=== PATIENT | female | born 1960 | race Caucasian/White ===

== ENCOUNTER 2018-07-25 10:01 | Outpatient (RCR) | payer MEDICARE, SELFPAY ==
--- NOTE | 2018-07-25 09:47 | PTDS_ITS ---
Date: July 25, 2018 Referring: Dr. 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 Reporting period: 10/24/17-07/25/18 Subjective: History of Present Illness: Irma states that she has been diligent with her home exercises. She continues to try to increase activity with the RUE. She is now able to take a few bites using her R hand for utensil management. She has also been practicing writing each day and feels that she is getting more skilled and tolerant with this. She does have less pain day to day. She has been able to resume crocheting and performing needle point, which she has been unable to do since her injury. Objective: Posture: Pt continues to demonstrate WBOS in static standing. She is slow and cautious with all movements and demonstrates occasional protective positioning of the RUE. ROM: Cervical motion grossly WNL, although with obvious apprehension. She is slow and cautious with all movements of the RUE, although ROM is normal. Neuro: Pt continues to demonstrate positive upper limb tension test for both the ulnar and median nerves on the R. Treatment: [place] [id number]: Today's treatment consisted of extensive review of pts HEP. Pt understands concepts of working towards pain threshold and will also begin utilizing her compression sleeve for some of her more advanced activities for hopefully improved tolerance. She received DTM throughout the extensor mechanism of the R forearm and cross friction of the common extensor tendon.She also received median nerve glides on the R with good tolerance and sustained stretching to the extensor group. Treatment Time: 35 min Assessment: Pt has been participating in PT intervention with infrequent visits over the past several months.She is returning today after 5 weeks of completing and independent program.Her symptoms of sciatica are very well managed and she continues a self stretching program for that.She is also having some functional improvement with use of RUE and has made significant gains in self management and self progression. She does understand the need for continued progressive re-introduction of abilities with RUE and, at this point, I do feel she is independent with completing. She is comfortable with this plan and understands that she can contact me with any questions or concerns in the future. G-Codes: Discharge status [id number] based on clinical judgement and progress towards established goals. Projected goal status had been [id number]. ST. Pt able to tolerate static standing to allow her to do dishes (met). 2. Pt able to tolerate introduction of HEP for core and pelvic stabilization and vestibulo ocular re-training (met). LT. Independent bed mobility without modification (met). 2. Pt able to turn head while driving without symptoms of dizziness ( progressing towards with occasional symptoms). 3. Pt able to sit for 30 min without symptoms of sciatica (met). 4. Improve comfort with VAS rating of less than 2/10 on average (not assessed on today's visit). Plan: D/C to HEP for continued self management of chronic symptoms. SS/fw MEDICAREDr. Carrillo, please sign below and return to PT if you agree with above POC. Tru Carrillo MD Date
== END 2018-07-27 23:59 | disposition home or self-care (01) ==
LOC: PT 10:01
PROVIDERS: PCP Family Medicine; Referring Provider Family Medicine; Visit Provider Family Medicine
DX: M54.32 Sciatica, left side (principal)
CPT/HCPCS: 97140

== ENCOUNTER 2018-11-09 10:52 | Outpatient (CLI) | payer MEDICARE, SELFPAY ==
[2018-11-09 12:58] LABS: Calcium 9.3 mg/dL (8.5-10.1)
== END 2018-11-09 11:12 ==
PROVIDERS: PCP Family Medicine; Visit Provider Family Medicine
DX: M62.838 Other muscle spasm (principal); R29.898 Other symptoms and signs involving the musculoskeletal system
CPT/HCPCS: 36415; 82310

== ENCOUNTER 2019-05-03 16:58 | Outpatient (CLI) | payer MEDICARE, SELFPAY ==
--- NOTE | 2019-05-03 16:25 | DI.RAD_ITS ---
SYMPTOM/DIAGNOSIS: BILAT KNEE PAIN, M25.569 LEFT KNEE: Three views. No priors. No acute fracture or dislocation is seen. There is mild narrowing of the medial femoral tibial joint space. Periarticular spurring is seen involving all three joint compartments. There is a moderate joint effusion. The soft tissues are otherwise unremarkable. IMPRESSION: 1. Mild osteoarthritis of the left knee. 2. Moderate joint effusion. If there is concern for internal derangement, an MRI should be considered for further evaluation. RIGHT KNEE: Three views. There is moderate narrowing of the medial femoral tibial joint space. There is periarticular spurring involving all three joint compartments. The bones are intact and normally mineralized. The soft tissues are unremarkable. IMPRESSION: Mild osteoarthritis of the right knee.
--- NOTE | 2019-05-03 16:53 | DI.VRAD_ITS ---
EXAM: XR Left Knee EXAM DATE/TIME: 05/03/2019 3:41 PM CLINICAL HISTORY: 58 years old, female; Bilateral; Patient HX: Acute on top of chronic knee pain, fell out of bed today, limited use TECHNIQUE: Imaging protocol: XR Left knee. Views: 3 views. COMPARISON: No relevant prior studies available. FINDINGS: Bones/joints: Moderate joint effusion. Internal derangement is not excluded. Consider MRI. No osteophytosis in the lateral compartment. No acute fracture or dislocation. Soft tissues: Normal. IMPRESSION: 1. Moderate joint effusion. Internal derangement is not excluded. Consider MRI. 2. No osteophytosis in the lateral compartment. Dictated and Authenticated by: Brandon Darden MD. Ordering:NATHALIA Ott MD
--- NOTE | 2019-05-03 16:54 | DI.VRAD_ITS ---
EXAM: XR Right Knee EXAM DATE/TIME: 05/03/2019 3:41 PM CLINICAL HISTORY: 58 years old, female; Bilateral; Patient HX: Acute on top of chronic knee pain, fell out of bed today, limited use TECHNIQUE: Imaging protocol: XR Right knee. Views: 3 views. COMPARISON: No relevant prior studies available. FINDINGS: Bones/joints: Narrowing of the medial compartment with mild associated osteophytosis. No acute fracture or dislocation. Soft tissues: Normal. IMPRESSION: Mild medial compartment osteoarthritis Dictated and Authenticated by: Brandon Darden MD. Ordering:NATHALIA Ott MD
== END 2019-05-03 17:18 ==
PROVIDERS: PCP Family Medicine; Visit Provider Family Medicine
DX: M25.561 Pain in right knee (principal); M25.562 Pain in left knee; M17.12 Unilateral primary osteoarthritis, left knee; M25.462 Effusion, left knee; M17.11 Unilateral primary osteoarthritis, right knee
CPT/HCPCS: 73562

== ENCOUNTER 2019-05-15 10:39 | Outpatient (CLI) | payer MEDICARE, SELFPAY ==
--- NOTE | 2019-05-15 10:37 | DI.RAD_ITS ---
SYMPTOMS/DIAGNOSIS: RT AND LT KNEE PAIN LEFT KNEE: A single AP upright image is provided and reveals medial tibial femoral joint space narrowing and mild periarticular hypertrophic spurring. Findings consistent with mild DJD, unchanged when compared with the previous images of 05/03/19. RIGHT KNEE: An AP upright examination reveals narrowing of the medial tibiofemoral joint, minimal hypertrophic spurring and no significant interval change when compared with the prior images of 05/03/19. SUMMARY: Mild to moderate DJD right knee.
== END 2019-05-15 10:59 ==
PROVIDERS: PCP Family Medicine; Referring Provider Family Medicine; Visit Provider Orthopaedic Surgery
DX: M25.561 Pain in right knee (principal); M25.562 Pain in left knee; M17.11 Unilateral primary osteoarthritis, right knee; M17.12 Unilateral primary osteoarthritis, left knee
CPT/HCPCS: 20610; 99202; 73560; J1040

== ENCOUNTER 2020-01-10 17:36 | Outpatient (REF) | payer MEDICARE, SELFPAY ==
--- NOTE | 2020-01-10 17:00 | PAPFT_PTH ---
PATIENT: Irma Gaytan LOC: [facility] U#:[id number] AGE/SX: 59/F ROOM: RE01/10/[address]: Tru Carrillo MD : [id number] BED: DIS: 01/10/2020 SPEC #: [id number] RECD: 01/13/20 12:53 STATUS: NIKIHerman REQ #: [id number] JAYLEN: 01/10/20 17:[address]: Tru Carrillo DEPT: [facility] Cytology RECD BY: Mary Godinez Tissues: 1 - CX/ENDOCX FOR PAP SMEARS Procedures: PAP THIN PREP/UVM Screening HPV DNA PROBE Comments: [id number]
== END 2020-01-10 17:56 ==
LOC: LBN 17:36
PROVIDERS: PCP Family Medicine; Visit Provider Family Medicine
DX: Z12.4 Encounter for screening for malignant neoplasm of cervix (principal); Z11.51 Encounter for screening for human papillomavirus (HPV)
CPT/HCPCS: 88142; 87624

== ENCOUNTER 2020-05-05 01:45 | Outpatient (CLI) | payer MEDICARE, SELFPAY ==
--- NOTE | 2020-05-05 13:15 | DI.MAMMO_ITS ---
EXAM: MG MAMMO SCREENING CLINICAL HISTORY: screening, Z12.39 TECHNIQUE: Bilateral full field digital CC and MLO mammographic images were obtained with 3D tomosyn thesis and utilizing computer aided detection (CAD). COMPARISON: Available for comparison. FINDINGS: Masses/Architectural Distortion: None seen. There is a stable nodule in the upper outer quadrant of t he right breast. Microcalcifications: No suspicious pleomorphic-type are seen. Skin Thickening/Nipple Retraction: None. Other: There are biopsy clips again seen in the upper outer quadrant of the right breast. IMPRESSION: 1. No significant interval change with no specific features of malignancy noted. 2. Unless there is more urgent need, screening mammography is recommended, as per [employer] guidelines. BI-RADS Category 1 - Negative Breast Density - Category B - Scattered areas of fibroglandular density A negative radiographic report should not delay biopsy if a dominant or clinically suspicious mass is present. Up to ten percent of cancers are not identified on mammography. A negative report may reinforce clinical impression. Adenosis and dense breasts may obscure an underlying neoplasm. False positive reports average 6 to 10%. Patient will receive a letter notifying them of these results.
== END 2020-05-05 02:05 ==
PROVIDERS: PCP Family Medicine; Visit Provider Family Medicine
DX: Z12.31 Encounter for screening mammogram for malignant neoplasm of breast (principal); N63.11 Unspecified lump in the right breast, upper outer quadrant
CPT/HCPCS: 77063; 77067

== ENCOUNTER 2020-07-10 10:58 | Outpatient (CLI) | payer MEDICARE, SELFPAY ==
[2020-07-10 13:03] LABS: CREATININE 0.75 mg/dL (0.55-1.02); Calculated LDL 176 mg/dL (<100); Cholesterol 267 mg/dL (<200); Glucose 102 mg/dL (74-106); HDL Cholesterol 61 mg/dL (40-60); Triglyceride 154 mg/dL (<150); Vitamin B12 360 pg/mL (193-986)
== END 2020-07-10 11:18 ==
PROVIDERS: PCP Family Medicine; Visit Provider Family Medicine
DX: E78.5 Hyperlipidemia, unspecified (principal); D64.9 Anemia, unspecified; G43.909 Migraine, unspecified, not intractable, without status migrainosus
CPT/HCPCS: 36415; 80061; 82947; 82565; 82607

== ENCOUNTER 2020-08-17 10:46 | Outpatient (CLI) | payer MEDICARE, SELFPAY ==
--- NOTE | 2020-08-17 10:15 | DI.RAD_ITS ---
EXAM: XR STANDING ALIGNMENT and XR knee LT 1 V CLINICAL HISTORY: L TKA planning. TECHNIQUE: 2D digital imaging was performed. COMPARISON: CR XR knee RT 1V from 05/15/2019 CR XR knee LT 1V from 05/15/2019 FINDINGS: Moderately severe degenerative changes are seen in the left knee. This is characterized by medial co mpartment joint space narrowing and periarticular spurring involving all 3 joint compartments. Moder ately severe degenerative changes are also seen in the right knee characterized by joint space narrow ing and periarticular spurring. The findings are most marked in the medial joint compartment. Hips are well maintained as are the ankles. No significant leg length discrepancy is noted. IMPRESSION: Bilateral osteoarthritis of the knees. DATA REPOSITORY: RADIATION DOSE DELIVERED:
== END 2020-08-17 11:06 ==
PROVIDERS: PCP Family Medicine; Referring Provider Family Medicine; Visit Provider Student in an Organized Health Care Education/Training Program
DX: M17.0 Bilateral primary osteoarthritis of knee (principal)
CPT/HCPCS: 99214; 73560; 77073

== ENCOUNTER 2020-10-02 03:01 | Outpatient (CLI) | payer MEDICARE, SELFPAY ==
[2020-10-06 12:55] LABS: SARS-CoV-2 RNA Not Detected (NotDetected); SARS-CoV-2 RNA Source Nasal/Nares
== END 2020-10-02 03:21 ==
PROVIDERS: PCP Family Medicine; Visit Provider Student in an Organized Health Care Education/Training Program
DX: Z11.59 Encounter for screening for other viral diseases (principal); Z01.818 Encounter for other preprocedural examination
CPT/HCPCS: U0003

== ENCOUNTER 2020-10-02 03:02 | Outpatient (CLI) | payer MEDICARE, SELFPAY ==
[2020-10-02 14:14] LABS: HCT 43.2 % (36.0-46.0); MCH 28.4 pg (27.0-33.0); MCHC 32.4 % (32.0-36.0); MCV 87.6 fL (80-95); MPV 9.4 fL (8.0-11.0); Platelet Count 374 10^3/uL (130-400); RBC 4.93 10^6/uL (3.93-5.22); RDW 14.2 % (11.7-14.6); RDW-SD 45.8 fL; WBC 6.79 10^3/uL (4.4-10.8)
[2020-10-02 15:02] LABS: Anion Gap 10.4 mmol/L (3-11); BUN 17 mg/dL (7-18); CO2 26.6 mmol/L (21.0-32.0); CREATININE 0.78 mg/dL (0.55-1.02); Chloride 103 mmol/L (98-107); Glucose 110 mg/dL (74-106); Potassium 4.3 mmol/L (3.5-5.1); Sodium 140 mmol/L (136-145)
== END 2020-10-02 03:22 ==
PROVIDERS: PCP Family Medicine; Visit Provider Student in an Organized Health Care Education/Training Program
DX: M25.562 Pain in left knee (principal); M17.12 Unilateral primary osteoarthritis, left knee; Z01.818 Encounter for other preprocedural examination; Z01.812 Encounter for preprocedural laboratory examination
CPT/HCPCS: 36415; 80048; 85027; U0003

== ENCOUNTER 2020-10-07 06:06 | Observation (INO) | payer MEDICARE, SELFPAY ==
[2020-10-07] VITALS (15 sets, daily range): BP systolic 110–134; BP diastolic 72–88; PULSE 70–86; RESP 12–18; TEMP 36.4–36.9; O2SAT 92–96
[2020-10-07] MEDS: Celecoxib 200 MG CAP 400 MG PO (06:45)
[2020-10-07] MEDS: Acetaminophen 500 MG TAB 1000 MG PO ×2 (06:45→14:48)
[2020-10-07] MEDS: Lactated Ringers 1,000 ML 80 ML IV (07:05)
[2020-10-07] MEDS: Bupivacaine 0.5% Pres-Free 30 ML VIAL (07:22)
[2020-10-07] MEDS: ceFAZolin 2 GM/50 ML BAG IVPB (07:43)
[2020-10-07] MEDS: Ketorolac 30 MG/ML VIAL (08:39)
[2020-10-07] MEDS: Bupivacaine 0.25% Pres-Free 30 ML VIAL (08:39)
[2020-10-07] MEDS: Normal Saline 20 ML VIAL (08:39)
--- NOTE | 2020-10-07 09:13 | W.PM.OP ---
Date of service: 10/07/20 Time of Service: 09:13 Operative Note Operative Note DATE OF PROCEDURE: 10/07/20 PRE-OP DIAGNOSIS: Left Knee Osteoarthritis POST-OP DIAGNOSIS: same PROCEDURE: Left Total Knee Replacement SURGEON: Olman Pedro COPPER TAPPER: Dianelys Cruz ANESTHESIA: regional and spinal ESTIMATED BLOOD LOSS: 250 PATHOLOGY: none sent TOURNIQUET TIME: 0 COMPLICATIONS: None Patient was transported to: PACU Patient's condition: stable Implants: 1. Depuy Attune Cementless Cruciate Retaining Femoral Component, Size 3 2. Depuy Attune Cementless Rotating Platform Tibial Component, Size 3 3. Depuy Attune 3x8mm CR/RP Poly 4. Depuy Attune Patellar Component, Size 35mm Indications: I have seen Irma in clinic for symptoms of knee arthritis, confirmed with radiographic findings. She has exhausted nonoperative methods and was having significant limitations in daily function and desired better function and less pain. I discussed the technical details of a knee replacement. I explained the risks of the procedure to include, but not limited to, bleeding, infection, pain, stiffness, fracture, damage to nerves and vessels, damage to muscles and tendons, loosening, need for repeat procedure, blood clot and cardiopulmonary demise. Despite these risks, Irma elected to proceed. Findings: There was significant signs of arthritis throughout the knee. These were mostly involving the trochlea and medial femur and tibia. Procedure Description: Irma was greeted in the preoperative holding area where the correct side was identified and marked. The consent was reviewed with the patient and signed. The history and physical was updated. All questions were answered. Preoperative medications were administered: Acetaminophen 1000mg, Celebrex 400mg, and Gabapentin 300mg. An adductor canal block was then administered by the anesthesia team in the PACU. She was taken back to the operating room. A spinal anesthestic was then administered. The patient was placed into the supine position on the operating room table. A nonsterile tourniquet was placed high onto the leg but only used for cementing. Posts were placed for positioning during the procedure. All bony prominences were well padded. Prophylactic antibiotics in the form of Cefazolin were administered. 1g of Tranxemic Acid was given intravenously within 30 minutes of incision. The left leg was then prepped with Chloraprep and draped in a standard fashion with impervious stockinette. A second prep with Chloraprep was performed prior to application of Iodine impregnated skin protection. A timeout to confirm correct identity, side and site, procedure, allergies, anesthesia, and medical concerns was performed. With the knee in some flexion, a midline incision was made overlying the knee. Full thickness skin flaps were raised once the extensor mechanism was encountered. These were raised medially and laterally. Any bleeding was controlled with electrocautery. Once the extensor mechanism was fully exposed, a medial parapatellar arthrotomy was performed in a flexed position. All bleeding from the arthrotomy and the geniculate arteries was coagulated. A medial subperiosteal peel was performed with electrocautery to the midcoronal plane. The fat pad was removed while keeping the patellar tendon protected. The anterior distal femur synovium was removed for later visualization. The ACL and PCL were resected and the anterior horn of the lateral meniscus was transected. The knee was then flexed with the patella everted. Large osteophytes from the tibia were removed. Large osteophytes from the femur were removed. Using a step drill, and based on preoperative templating, the femoral canal was entered. This was done with a step drill without any difficulty. The intramedullary distal femoral cut guide was inserted, set to a 5 degree valgus cut and 9mm cut thickness. The distal femoral cut guide was then held in position and pinned. With the soft tissues protected, the distal cut was performed. This was passed over a few times to ensure a planar cut. I then turned attention to the tibia. The extramedullary guide was placed onto the leg. The distal aspect was slid medial to adjust for position of center of ankle and stay in line with shaft of the tibia. Approximately 5 degrees of posterior slope was kept in the proximal cutting guide. The center of the guide was aligned with the PCL. The stylus was used to assess cut thickness. The medial side, most involved side, was set for a 3mm cut, corresponding to 9mm laterally. This was then held in position and pinned into place with 2 additional pins and a cross pin for stability. The medial and lateral collateral ligaments were protected and the cut was performed. With this completed, it was assessed and noted to be of appropriate dimensions. The guide was removed. A spacer block was inserted and the knee was brought into extension. The 8mm spacer block provided full extension, without hyperextension and with stability of both the medial and lateral collateral ligaments was assessed. The pins from the femur and the tibia were then removed. The distal femur was then sized. The anterior stylus was placed onto the lateral ridge of the anterior femur. This indicated a size 3 femur. The external rotation of the guide was adjusted to 3 degrees to match the epicondylar axis, perpendicular to Louisa?s line. The 4-in-1 cutting guide was the placed. The posterior medial femur cut was evaluated and appeared of good thickness. The spacer block was inserted underneath the cutting guide and stability was confirmed in 90 degrees of flexion. An wil wing was used to confirm appropriate position of the anterior cut to avoid notching. This was translated anteriorly 1.5mm to open up the flexion space as this was tight. This cutting guide was ensured to be flush on the cut surface and then pinned into place with headed pins. While protecting the soft tissues, quad tendon, and collateral ligaments, the anterior and posterior cuts were performed with a saw. The central two pins were removed and the posterior and anterior chamfers were cut next. The notch-cutting guide was placed. This was pinned to lateralize the femoral component as much as possible while keeping it flush on the cut surface. This was then pinned into position. A reciprocating saw was used to make the notch cut. A rasp smoothed the cut surfaces. The medial and lateral menisci were removed. A trial femoral component was then inserted, impacted down to the cut surfaces, and the lug holes were drilled. A provisional trial tibial component was placed and the knee was brought through range of motion. There was noted to be excellent extension and flexion. There was no significant instability. The polyethylene was trialed until there was good flexion and extension with excellent stability to the medial and lateral collaterals. The patella was tracking without thumbs. A size 8mm polyethylene component provided the best range of motion and stability with less than 2mm gapping with medial and lateral stress and full extension without significant hyperextension. The tibial cut surface was fully exposed. The tibia was then sized as a 3. The tibia had been previously marked during trialing to correspond to the center of the tibial component to help with rotation. The trial was aligned to this trae, approximately rotated to the medial 1/3rd of the tibial tubercle. The trial was pinned into place. The tibia was prepared with a reamer and a keel punch and lug holes. The knee was then brought into extension and the patella was measured as 22mm. Using the patellar clamp and cut guide, this was resected to a flat surface with at least 13mm of thickness remaining. The size 35 patella fit the best. This was oriented and then clamped into position. The lugs were drilled. The trial components were removed. The final components were opened on the back table. The periosteal and capsular tissues, especially posteriorly, around the knee were then systematically injected with a periarticular cocktail consisting of 50cc 0.25% Marcaine, 30mg Ketorolac, 20cc of Exparal and 50cc of injectable saline. The knee was thoroughly irrigated with a pulse lavage and dried. Irrisept was also used to irrigate the tissues. On the back table, with the implants opened, the cement was mixed. One batche of high viscosity cement were prepared with vacuum assistance. After the cement was ready a small amount was placed on the cut surface of the patella and the patellar button was clamped into position and held. During this process attention was turned to the gutters of the knee and for all interfaces for any excess cement. While the cement was hardening, the cementless knee components were placed. Starting with the tibial component, the tibia was subluxed anteriorly and the lug holes of the component were lined up. The tibia was then impacted with an impactor and mallet until the tibial component was in contact with the tibia. The final polyethylene component was inserted. Then, the femoral component was inserted. The lug holes were aligned and the component was impacted into position. The knee was irrigated with Irrisept chlorhexadine solution. This was allowed to sit in the knee for 3 minutes. After the cement had finally cured, approximately 15min, the clamp was removed from the patella and the knee was taken through range of motion. The patella was tracking with a no-thumbs technique. The capsule was then reapproximated with a No. 1 Vicryl at multiple locations. The capsule was finally closed with a No. 2 Stratafix, barbed suture. The tourniquet was then released and the arthrotomy appeared watertight without significant bleeding. The second dosing of 1g TXA was started. Deep tissues were then reapproximated with 0 Vicryl and 2-0 Vicryl. The skin was closed with a running 3-0 Monocryl in a subcuticular fashion. This was reinforced with skin glue. A Mepilex silver dressing was applied along with a [id number] MADHAVI wrap. A CryoCuff was applied. Irma was transferred to the hospital bed without difficulty an suffering no apparent complication. She has a good prognosis. Physical therapy will start today and without restrictions, weight-bearing as tolerated. Aspirin 81mg BID will be used for DVT prophylaxis.
[2020-10-07] MEDS: HYDROmorphone 2 MG/ML VIAL IVP (09:55)
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
--- NOTE | 2020-10-07 14:23 | PT.INTREAT ---
PT Notes Visit Reasons: LEFT KNEE DJD 10/07/2020 SUBJECTIVE: Irma stating she has some burning sensation in the front of her knee. This does resolve when in standing position. She also notes migraine symptoms but this is not unusual for her. OBJECTIVE: [id number] TRANSFERS Sit to stand: SBA Stand to sit: SBA GAIT Device: FWW Weight bearing: AT L Assist: SBA Distance: 150'x2 Deviation: Step through pattern STAIRS: 3-4 steps, 2-6 steps, 1 rail, 1 SPC step to pattern, SBA. THEREX/HOME EDUCATION: Review basic HEP including QS, Glute sets and ankle pumps. Review sleeping positions and avoidance of placing pillow under her knee. Pt has a good understanding. ASSESSMENT: Tolerates PT well this afternoon without difficulty with straight plane ambulation or stairs. She was fit for a walker to take home with her. She understands to contact us or Dr. Pedro's office with any questions. PLAN: Pt to be discharged home. See discharge summary for details. Direct time: 30 minutes Total time: 30 minutes Padmini Salter PTA Clinic location: [facility] [place], [place]
[2020-10-07] MEDS: SUMAtriptan 50 MG TAB PO (14:45)
--- NOTE | 2020-10-07 16:23 | NUR.NOTE ---
Nursing Note: Pt reported ocular migraine upon arrival to MS unit around 10:30, described impaired visuals from L eye: It looks like I'm looking through bubble wrap. Pt reports hx of ocular migraines. Pt states she is a regular coffee drinker and did not have any this AM. Offered pt a cup of coffee which provided some relief. Pt reported no head pain at this time. Pt reported symptom relief following ambulation with PT around 12:30: It's feeling better but I still see zig-zags on the wall. At 14:00, pt reports vision in L eye becoming dark. Consulted Dr. Pedro who advised administration of prescribed Imitrex, which she normally takes for migraines at home. Pt reports 1-2/10 headache pain which was not relieved by laying flat. Administered Tylenol and Imitrex at 14:45.
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
== END 2020-10-07 15:15 | disposition home or self-care (01) ==
LOC: PDS 11:11 → MS 11:11
PROVIDERS: Admitting Provider Student in an Organized Health Care Education/Training Program; PCP Family Medicine; Visit Provider Student in an Organized Health Care Education/Training Program
PROC: 0SRD0J9 Replacement of Left Knee Joint with Synthetic Substitute, Cemented, Open Approach (ICD-10-PCS; CPT 27447; principal; 2020-10-07 07:30)
DX: M17.12 Unilateral primary osteoarthritis, left knee (principal); M25.562 Pain in left knee; Z96.652 Presence of left artificial knee joint; G89.18 Other acute postprocedural pain; J45.909 Unspecified asthma, uncomplicated
CPT/HCPCS: 27447; C1776; 76942; 97162; 97530; NC; G0378; J0690; J1100; J1885; J2250; J2370; J2405

== ENCOUNTER 2020-10-26 11:54 | Outpatient (CLI) | payer MEDICARE, SELFPAY ==
--- NOTE | 2020-10-26 11:22 | DI.RAD_ITS ---
EXAM: XR STANDING ALIGNMENT CLINICAL HISTORY: 1st post op l tka TECHNIQUE: COMPARISON: CR XR STANDING ALIGNMENT from 08/17/2020 CR XR KNEE LT 1V from 10/26/2020 FINDINGS: AP views of the lower extremities were obtained for standing alignment. There are slight degenerativ e changes of both hips. There is a total knee joint replacement position on the left. There is angelo re degenerative change of the medial tibiofemoral joint on the right. A lateral view of the left knee shows TKR components in good position. IMPRESSION: RADIATION DOSE DELIVERED: Total DLP Total DLP
== END 2020-10-26 12:14 ==
PROVIDERS: PCP Family Medicine; Referring Provider Family Medicine; Visit Provider Student in an Organized Health Care Education/Training Program
DX: Z96.652 Presence of left artificial knee joint (principal); Z47.1 Aftercare following joint replacement surgery
CPT/HCPCS: 73560; 77073

== ENCOUNTER → 2020-11-23 10:26 | Outpatient (BNVA) | payer MEDICARE, SELFPAY | PROVIDERS: PCP Family Medicine; Visit Provider Student in an Organized Health Care Education/Training Program | DX: Z47.1 Aftercare following joint replacement surgery (principal); Z96.652 Presence of left artificial knee joint ==

== ENCOUNTER → 2021-01-07 11:44 | Outpatient (BNVA) | payer MEDICARE, SELFPAY | PROVIDERS: PCP Family Medicine; Referring Provider Family Medicine; Visit Provider Student in an Organized Health Care Education/Training Program | DX: Z47.1 Aftercare following joint replacement surgery (principal); Z96.652 Presence of left artificial knee joint | CPT/HCPCS: 99213 ==

== ENCOUNTER 2021-10-07 12:42 | Outpatient (CLI) | payer MEDICARE, SELFPAY ==
--- NOTE | 2021-10-07 08:15 | DI.RAD_ITS ---
Exam(s) XR KNEE LT 2V AP,LAT EXAM: XR KNEE LT 2V AP,LAT INDICATION: ANNUAL F/U L TKA. COMPARISON: CR XR KNEE LT 1V from 08/17/2020 CR XR KNEE LT 1V from 08/17/2020 CR XR STANDING ALIGNMENT from 10/26/2020 CR XR KNEE LT 1V from 10/26/2020 CR XR STANDING ALIGNMENT from 10/26/2020 CR XR KNEE LT 1V from 10/26/2020 TECHNIQUE: 2D digital imaging was performed. FINDINGS: There has been no change in the alignment of the total knee prosthesis or appearance of the surroundi ng bone. There is decreased joint effusion DATA REPOSITORY: RADIATION DOSE DELIVERED:
== END 2021-10-07 12:43 | disposition home or self-care (01) ==
LOC: DIORS 12:42
PROVIDERS: PCP Family Medicine; Referring Provider Family Medicine; Visit Provider Student in an Organized Health Care Education/Training Program
DX: Z96.652 Presence of left artificial knee joint (principal); Z47.1 Aftercare following joint replacement surgery
CPT/HCPCS: 99213; 73560

== ENCOUNTER → 2021-12-20 12:29 | Outpatient (BNVA) | payer MEDICARE, SELFPAY | PROVIDERS: PCP Family Medicine; Referring Provider Family Medicine; Visit Provider Nurse Practitioner Adult Health | DX: G43.109 Migraine with aura, not intractable, without status migrainosus (principal); M54.2 Cervicalgia; G89.29 Other chronic pain; G43.009 Migraine without aura, not intractable, without status migrainosus; Z87.820 Personal history of traumatic brain injury | CPT/HCPCS: 99204; 99215 ==

== ENCOUNTER → 2021-12-30 09:17 | Outpatient (BNVA) | payer MEDICARE, SELFPAY | PROVIDERS: PCP Family Medicine; Referring Provider Family Medicine; Visit Provider Student in an Organized Health Care Education/Training Program | DX: Z47.1 Aftercare following joint replacement surgery (principal); R21 Rash and other nonspecific skin eruption; Z96.652 Presence of left artificial knee joint | CPT/HCPCS: 99214 ==

== ENCOUNTER → 2021-12-30 13:45 | Outpatient (BNVA) | payer MEDICARE, SELFPAY | PROVIDERS: PCP Family Medicine; Referring Provider Family Medicine; Visit Provider Nurse Practitioner Adult Health | DX: G43.009 Migraine without aura, not intractable, without status migrainosus (principal); G43.109 Migraine with aura, not intractable, without status migrainosus; Z71.89 Other specified counseling | CPT/HCPCS: 99211; 99214 ==

== ENCOUNTER 2022-01-27 04:43 | Outpatient (CLI) | payer MEDICARE, SELFPAY ==
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
== END 2022-01-27 04:44 | disposition home or self-care (01) ==
PROVIDERS: PCP Family Medicine; Visit Provider Dietitian, Registered

== ENCOUNTER 2022-02-02 04:23 | Outpatient (CLI) | payer MEDICARE, SELFPAY ==
[2022-02-02 09:24] LABS: Hemoglobin A1C 5.8 % (<5.7)
[2022-02-02 09:35] LABS: Calculated LDL 140 mg/dL (<100); Cholesterol 226 mg/dL (<200); HDL Cholesterol 68 mg/dL (40-60); Triglyceride 92 mg/dL (<150)
== END 2022-02-02 04:24 | disposition home or self-care (01) ==
LOC: LBO 04:24
PROVIDERS: PCP Family Medicine; Visit Provider Family Medicine
DX: E78.5 Hyperlipidemia, unspecified (principal); R73.9 Hyperglycemia, unspecified
CPT/HCPCS: 36415; 80061; 83036

== ENCOUNTER → 2022-03-15 10:27 | Outpatient (BNVA) | payer MEDICARE, SELFPAY | PROVIDERS: PCP Family Medicine; Referring Provider Family Medicine; Visit Provider Nurse Practitioner Adult Health | DX: G43.001 Migraine without aura, not intractable, with status migrainosus (principal); G43.101 Migraine with aura, not intractable, with status migrainosus; M54.2 Cervicalgia; G89.29 Other chronic pain; Z87.820 Personal history of traumatic brain injury | CPT/HCPCS: 99213; J1885; J2550; 96372 ==

== ENCOUNTER → 2022-06-14 10:28 | Outpatient (BNVA) | payer MEDICARE, SELFPAY | PROVIDERS: PCP Family Medicine; Referring Provider Family Medicine; Visit Provider Nurse Practitioner Adult Health | DX: G43.901 Migraine, unspecified, not intractable, with status migrainosus (principal); G43.009 Migraine without aura, not intractable, without status migrainosus; Z87.820 Personal history of traumatic brain injury; M54.2 Cervicalgia; G89.29 Other chronic pain | CPT/HCPCS: 99213; 99214 ==

== ENCOUNTER → 2022-10-10 09:05 | Outpatient (BNVA) | payer MEDICARE, SELFPAY | PROVIDERS: PCP Family Medicine; Referring Provider Family Medicine; Visit Provider Nurse Practitioner Adult Health | DX: Z87.820 Personal history of traumatic brain injury (principal); M54.2 Cervicalgia; G43.101 Migraine with aura, not intractable, with status migrainosus; G43.001 Migraine without aura, not intractable, with status migrainosus | CPT/HCPCS: 99213; 99214 ==

== ENCOUNTER 2022-11-27 22:22 | Emergency (ER) | payer MEDICARE, SELFPAY ==
[2022-11-27] VITALS (56 sets, daily range): BP systolic 106–152; BP diastolic 61–90; PULSE 79–93; RESP 12–24; TEMP 36.9; O2SAT 90–96
--- NOTE | 2022-11-27 22:15 | RT.EKG_ITS ---
APPROVED REPORT Exam: Resting ECG Reason for Exam: stroke like symptoms Patient Location: E HR:90 bpm ECG Measurements Heart Rate 90 AXIS IL 221 P 50 QRSd 97 QRS -13 QT 358 T 29 QTc 438 Conclusion Sinus rhythm...normal P axis, V-rate 60- 99 Prolonged IL interval...IL >220, V-rate 50- 90 Probable left atrial enlargement...P >50mS, <-0.10mV V1 Inferior infarct, old...Q >35mS, II III aVF sinus rhythm, left axis, normal intervals, non ischemic
[2022-11-27] MEDS: LORazepam 2 MG/ML VIAL (22:30)
--- NOTE | 2022-11-27 22:30 | DI.CT_ITS ---
Exam(s) CT BRAIN NECK CTA EXAM: CT BRAIN NECK CTA CLINICAL HISTORY: ams, unable to speak; hx of tbi. TECHNIQUE: Imaging Protocol: Axial CT angiography was performed with multi-slice acquisition and mu lti-planar and 3D reconstructions. CONTRAST MATERIAL: Intravenous: Omnipaque 350 Contrast volume:85 ml COMPARISON: No exams were available for comparison FINDINGS: CT Head W/O and W contrast: Ventricles and Extra axial spaces: Normal in size and morphology for the patient's age. Hemorrhage: None. Cerebral parenchyma: Normal. Midline shift: None. Brainstem/Cerebellum: Normal. Calvarium: Normal. Visualized Paranasal sinuses/Mastoids: Mild mucosal thickening. Soft Tissues: Unremarkable. Enhancement: Normal. CTA Brain W: Internal Carotid Arteries: Petrous: Normal. Cavernous: Normal. Cerebral: Normal. Middle Cerebral Arteries: Right: No aneurysm, occlusion or significant stenosis. Left: No aneurysm, occlusion or significant stenosis. Anterior Cerebral Arteries: Right: No aneurysm, occlusion or significant stenosis. Left: No aneurysm, occlusion or significant stenosis. Posterior cerebral Arteries: Right: No aneurysm, occlusion or significant stenosis. Left: No aneurysm, occlusion or significant stenosis. Vertebral Arteries: Right: No aneurysm, occlusion or significant stenosis. Left: No aneurysm, occlusion or significant stenosis. Basilar Artery: No aneurysm, occlusion or significant stenosis. CTA Neck W: Common Carotid: Right: No aneurysm, occlusion or significant stenosis. Left: No aneurysm, occlusion or significant stenosis. External Carotid: Right: No aneurysm, occlusion or significant stenosis. Left: No aneurysm, occlusion or significant stenosis. Internal Carotid: Right: No aneurysm, occlusion or significant stenosis. No dissection. Left: No aneurysm, occlusion or significant stenosis. No dissection. Vertebral Artery: Right: No aneurysm, occlusion or significant stenosis. No dissection Left: No aneurysm, occlusion or significant stenosis. No dissection. Lung Apices: Respiratory motion. Bones: Mild degenerative changes. Soft Tissues: Normal. IMPRESSION: 1. Normal CTA examination of the [place]. 2. Unremarkable CT Head. 3. Normal CTA examination of the neck. RADIATION DOSE DELIVERED: 2,016.62mGy.cm Total DLP DATA REPOSITORY: All CT scans at this facility are submitted to the National Radiology Data Registry (NRDR) Dose Index Registry (DIR) with the [employer] (ACR). RADIATION OPTIMIZATION: All CT scans at this facility use at least one of these dose optimization te chniques: automated exposure control; mA and/or kV adjustment per patient size (includes targeted exa ms where dose is matched to clinical indication); or iterative reconstruction.
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
[2022-11-27] MEDS: Normal Saline 1,000 ML 1000 ML IV (22:38)
[2022-11-27 22:45] LABS: Abs Immature Grans 0.04 10^3/uL (0.0-0.06); Absolute Basophil Count 0.08 10^3/uL (0.0-0.2); Absolute Eosinophil Count 0.27 10^3/uL (0.0-0.7); Absolute Lymphocyte Count 2.82 10^3/uL (1.2-3.4); Absolute Monocyte Count 0.79 10^3/uL (0.1-0.8); Absolute Neutrophil Count 6.12 10^3/uL (1.2-6.7); Basophils % 0.8; Eosinophils % 2.7; HCT 42.6 % (36.0-46.0); HGB 14.2 g/dL (11.2-15.7); Immature Grans % 0.4; Lymphocytes % 27.9; MCH 28.9 pg (27.0-33.0); MCHC 33.3 % (32.0-36.0); MCV 87 fL (80-95); MPV 9.4 fL (8.0-11.0); Monocytes % 7.8; Neutrophils % 60.4; Platelet Count 304 10^3/uL (130-400); RBC 4.92 10^6/uL (3.93-5.22); RDW 13.8 % (11.7-14.6); RDW-SD 44.5 fL; WBC 10.12 10^3/uL (4.4-10.8)
[2022-11-27] MEDS: Omnipaque 350 MG/ML 100 ML BTL IJ (22:48)
[2022-11-27 23:07] LABS: ALT 25 U/L (14-59); AST 17 U/L (15-37); Albumin 4.1 g/dL (3.4-5.0); Alkaline Phosphatase 90 U/L (46-116); Anion Gap 7.8 mmol/L (3-11); BUN 25 mg/dL (7-18); Bilirubin, Total 0.3 mg/dL (0.2-1.0); CO2 29.2 mmol/L (21.0-32.0); CREATININE 0.9 mg/dL (0.55-1.02); Calcium 9.2 mg/dL (8.5-10.1); Chloride 106 mmol/L (98-107); Estimated GFR 71.39 (mL/min/1.73m2); Glucose 111 mg/dL (74-106); Magnesium 2.1 mg/dL (1.8-2.4); Sodium 143 mmol/L (136-145); TSH (W/Ref FT4) 3.58 uIU/mL (0.36-3.74); Total Protein 7.8 g/dL (6.4-8.2)
--- NOTE | 2022-11-27 23:13 | DI.VRAD_ITS ---
PROCEDURE INFORMATION: Exam: CTA Head Without And With Contrast, Arteriography Exam date and time: 11/27/2022 10:45 PM Age: 62 years old Clinical indication: Stroke-like symptoms; Altered mental status/memory loss and speech disturbance; Additional info: AMS, unable to speak; HX of tbi TECHNIQUE: Imaging protocol: Computed tomographic angiography of the head without and with contrast. Exam focused on the arteries. 3D rendering (Not supervised by radiologist): MIP and/or 3D reconstructed images were created by the technologist. Radiation optimization: All CT scans at this facility use at least one of these dose optimization techniques: automated exposure control; mA and/or kV adjustment per patient size (includes targeted exams where dose is matched to clinical indication); or iterative reconstruction. Contrast material: OMNIPAQUE 350; Contrast volume: 85 ml; Contrast route: INTRAVENOUS (IV); Other technique: STROKE PROTOCOL was implemented. COMPARISON: No relevant prior studies available. FINDINGS: ANTERIOR CIRCULATION: Right internal carotid artery: Intracranial segment is patent with no significant stenosis or occlusion. No aneurysm. Right middle cerebral artery: No occlusion or significant stenosis. No aneurysm. Right anterior cerebral artery: No occlusion or significant stenosis. No aneurysm. Left internal carotid artery: Intracranial segment is patent with no significant stenosis. No aneurysm. Left middle cerebral artery: No occlusion or significant stenosis. No aneurysm. Left anterior cerebral artery: No occlusion or significant stenosis. No aneurysm. POSTERIOR CIRCULATION: Right vertebral artery: No occlusion or significant stenosis. No aneurysm. Left vertebral artery: No occlusion or significant stenosis. No aneurysm. Basilar artery: No occlusion or significant stenosis. No aneurysm. Right posterior cerebral artery: No occlusion or significant stenosis. No aneurysm. Left posterior cerebral artery: Patent and type left posterior cerebral artery. HEAD: Brain: No intracranial hemorrhage or extra-axial fluid collection. No evidence of mass effect or midline shift. Lopez-white matter differentiation is intact. Cerebral ventricles: No ventriculomegaly. Bones/joints: Unremarkable. No acute fracture. Paranasal sinuses: Visualized sinuses are normal. No fluid levels. Mastoid air cells: Visualized mastoids are normal. No mastoid effusion. Soft tissues: Unremarkable. IMPRESSION: 1. No intracranial arterial occlusion or significant stenosis. 2. No acute findings on non-contrast Head CT images. ASPECTS score 10. PROCEDURE INFORMATION: Exam: CTA Neck With Contrast Exam date and time: 11/27/2022 10:45 PM Age: 62 years old Clinical indication: Stroke-like symptoms; Altered mental status/memory loss and speech disturbance; Additional info: AMS, unable to speak; HX of tbi TECHNIQUE: Imaging protocol: Computed tomographic angiography of the neck with contrast. 3D rendering (Not supervised by radiologist): MIP and/or 3D reconstructed images were created by the technologist. Radiation optimization: All CT scans at this facility use at least one of these dose optimization techniques: automated exposure control; mA and/or kV adjustment per patient size (includes targeted exams where dose is matched to clinical indication); or iterative reconstruction. Contrast material: OMNIPAQUE 350; Contrast volume: 85 ml; Contrast route: INTRAVENOUS (IV); COMPARISON: No relevant prior studies available. FINDINGS: Right common carotid artery: No significant stenosis. No dissection or occlusion. Right internal carotid artery: Extracranial segment is patent with no significant stenosis (0% stenosis by NASCET criteria). No dissection or occlusion. Right external carotid artery: No occlusion or significant stenosis. Left common carotid artery: No significant stenosis. No dissection or occlusion. Left internal carotid artery: Extracranial segment is patent with no significant stenosis (0% stenosis by NASCET criteria). No dissection or occlusion. Left external carotid artery: No occlusion or significant stenosis. Right vertebral artery: No significant stenosis. No dissection or occlusion. Left vertebral artery: No significant stenosis. No dissection or occlusion. Soft tissues: Unremarkable. Bones/joints: No acute fracture. IMPRESSION: No occlusion or significant stenosis in the arteries of the neck. REFERENCES: NASCET CRITERIA. The degree of stenosis in the cervical segment of the internal carotid artery is based on NASCET criteria. Normal is no stenosis. Mild is less than 50% stenosis. Moderate is 50-69% stenosis. Severe is 70% to 99% stenosis. Total occlusion is no detectable patent lumen. Dictated and Authenticated by: Uli Reagan MD. Ordering:SHANI Callahan MD
[2022-11-27 23:23] LABS: Bilirubin Negative (Negative); Blood Negative (Negative); Clarity Clear (Clear); Glucose Negative (Negative); Ketones Negative (Negative); Leukocyte Esterase Negative (Negative); Nitrite Negative (Negative); Specific Gravity 1.015 (1.005-1.025); Urobilinogen 0.2 EU/dL (Up TO 0.2); pH 6.5 (5-8)
[2022-11-27 23:34] LABS: *AMPHETAMINES SCREEN URINE Negative (Negative); *BARBITURATES SCREEN URINE Negative (Negative); *BENZODIAZEPINES SCREEN URINE Negative (Negative); Cannabinoids THC Negative (Negative); Cocaine Screen,Urine Negative (Negative); METHADONE URINE SCREEN Negative (Negative); OPIATES URINE SCREEN Negative (Negative)
[2022-11-27 23:39] LABS: Tricyclic Antidepressants Negative (Negative)
[2022-11-27] MEDS: levETIRAcetam 1,000 MG in Normal Saline 100 ML 400 MG IVPB (23:43)
[2022-11-28] VITALS (30 sets, daily range): BP systolic 102–132; BP diastolic 58–78; PULSE 63–89; RESP 10–19; TEMP 36.6; O2SAT 88–99
== END 2022-11-28 02:56 | disposition home or self-care (01) ==
PROVIDERS: Emergency Provider Emergency Medicine; PCP Family Medicine
DX: R47.01 Aphasia (principal); R25.1 Tremor, unspecified; F03.90 Unspecified dementia, unspecified severity, without behavioral disturbance, psychotic disturbance, mood disturbance, and anxiety; Z86.69 Personal history of other diseases of the nervous system and sense organs; Z87.820 Personal history of traumatic brain injury; Z79.899 Other long term (current) drug therapy
CPT/HCPCS: 36415; 70496; 70498; 80053; 80307; 93005; 96361; 96365; 99285; 81003; 83735; 84443; 85025; 93010; J1953; J2060; J3490

== ENCOUNTER → 2022-11-30 10:20 | Outpatient (BNVA) | payer MEDICARE, SELFPAY | PROVIDERS: PCP Family Medicine; Referring Provider Family Medicine; Visit Provider Nurse Practitioner Adult Health | DX: R29.818 Other symptoms and signs involving the nervous system (principal); G43.009 Migraine without aura, not intractable, without status migrainosus; G43.109 Migraine with aura, not intractable, without status migrainosus | CPT/HCPCS: 99213; 99214 ==

== ENCOUNTER 2022-12-09 09:40 | Outpatient (CLI) | payer MEDICARE, SELFPAY ==
--- NOTE | 2022-12-09 09:30 | DI.RAD_ITS ---
Exam(s) XR KNEE LT 2V AP,LAT EXAM: XR KNEE LT 2V AP,LAT CLINICAL HISTORY: annual f/u L TKA. TECHNIQUE: 2D digital imaging was performed. Two images were obtained. AP and lateral views were ob tained. COMPARISON: CR XR KNEE LT 2V AP,LAT from 10/07/2021 FINDINGS: BONES: There are stable post operative changes present. No fracture or dislocation. JOINTS: The orthopedic hardware is in good position. No evidence of hardware loosening. SOFT TISSUE: Normal. IMPRESSION: Stable postoperative changes. DATA REPOSITORY: RADIATION DOSE DELIVERED:
== END 2022-12-09 09:41 | disposition home or self-care (01) ==
LOC: DIORS 09:41
PROVIDERS: PCP Family Medicine; Referring Provider Family Medicine; Visit Provider Student in an Organized Health Care Education/Training Program
DX: Z96.652 Presence of left artificial knee joint (principal)
CPT/HCPCS: 99213; 73560

== ENCOUNTER → 2023-03-01 13:03 | Outpatient (BNVA) | payer MEDICARE, SELFPAY | PROVIDERS: PCP Family Medicine; Visit Provider Nurse Practitioner Adult Health | DX: G43.109 Migraine with aura, not intractable, without status migrainosus (principal); G43.009 Migraine without aura, not intractable, without status migrainosus; F43.10 Post-traumatic stress disorder, unspecified; F39 Unspecified mood [affective] disorder | CPT/HCPCS: 99213 ==

== ENCOUNTER → 2023-06-27 09:29 | Outpatient (BNVA) | payer MEDICARE, SELFPAY | PROVIDERS: PCP Family Medicine; Referring Provider Family Medicine; Visit Provider Nurse Practitioner Adult Health | DX: G43.009 Migraine without aura, not intractable, without status migrainosus (principal); G43.109 Migraine with aura, not intractable, without status migrainosus; F43.10 Post-traumatic stress disorder, unspecified | CPT/HCPCS: 99213 ==

== ENCOUNTER → 2023-06-29 08:24 | Outpatient (BNVA) | payer MEDICARE, SELFPAY | PROVIDERS: PCP Family Medicine; Referring Provider Family Medicine; Visit Provider Nurse Practitioner Adult Health | DX: R51.9 Headache, unspecified (principal) | CPT/HCPCS: 64405 ==

== ENCOUNTER → 2023-07-13 11:14 | Outpatient (BNVA) | payer MEDICARE, SELFPAY | PROVIDERS: PCP Family Medicine; Referring Provider Family Medicine; Visit Provider Nurse Practitioner Adult Health | DX: R51.9 Headache, unspecified (principal) | CPT/HCPCS: 64405 ==

== ENCOUNTER → 2023-08-03 11:02 | Outpatient (BNVA) | payer MEDICARE, SELFPAY | PROVIDERS: PCP Family Medicine; Referring Provider Family Medicine; Visit Provider Nurse Practitioner Adult Health | DX: R51.9 Headache, unspecified (principal) | CPT/HCPCS: 64405 ==

== ENCOUNTER 2023-08-18 10:11 | Outpatient (CLI) | payer MEDICARE, SELFPAY ==
--- NOTE | 2023-08-18 10:00 | DI.RAD_ITS ---
Exam(s) XR KNEE RT 2V AP,LAT XR STANDING ALIGNMENT EXAM: XR STANDING ALIGNMENT and XR knee RT 2 V CLINICAL HISTORY: RIGHT KNEE PAIN. TECHNIQUE: 2D digital imaging was performed. Six images were obtained. COMPARISON: CR XR STANDING ALIGNMENT from 10/26/2020 CR XR KNEE LT 2V AP,LAT from 12/09/2022 FINDINGS: BONES: The hips are well maintained. There are stable findings of a left total knee replacement. Th e orthopedic hardware appears in good position. There are marked degenerative changes seen in the ri ght knee characterized by joint space narrowing and osteophytes. The findings are most marked in the medial femoral tibial joint. There is a small joint effusion. The ankles are well maintained.There is no significant leg length discrepancy. SOFT TISSUE: Normal. IMPRESSION: Osteoarthritis of the right knee. DATA REPOSITORY: RADIATION DOSE DELIVERED:
== END 2023-08-18 10:12 | disposition home or self-care (01) ==
LOC: DIORS 10:12
PROVIDERS: PCP Family Medicine; Referring Provider Family Medicine; Visit Provider Physician Assistant
DX: M25.561 Pain in right knee (principal); M17.11 Unilateral primary osteoarthritis, right knee; Z96.652 Presence of left artificial knee joint
CPT/HCPCS: 20610; 73560; 77073; J1040

== ENCOUNTER → 2023-09-05 08:27 | Outpatient (BNVA) | payer MEDICARE, OTHER, SELFPAY | PROVIDERS: PCP Family Medicine; Referring Provider Family Medicine; Visit Provider Nurse Practitioner Adult Health | DX: F51.9 Sleep disorder not due to a substance or known physiological condition, unspecified (principal); F43.10 Post-traumatic stress disorder, unspecified; R51.9 Headache, unspecified | CPT/HCPCS: 64405; 99213 ==

== ENCOUNTER → 2023-10-31 13:10 | Outpatient (BNVA) | payer MEDICARE, OTHER, SELFPAY | PROVIDERS: PCP Family Medicine; Referring Provider Family Medicine; Visit Provider Psychiatry & Neurology Neurology | DX: G43.109 Migraine with aura, not intractable, without status migrainosus (principal); Z87.820 Personal history of traumatic brain injury; G47.33 Obstructive sleep apnea (adult) (pediatric) | CPT/HCPCS: 99214 ==

== ENCOUNTER → 2024-03-26 12:23 | Outpatient (BNVA) | payer MEDICARE, OTHER, SELFPAY | PROVIDERS: PCP Family Medicine; Referring Provider Family Medicine; Visit Provider Nurse Practitioner Adult Health | DX: G43.109 Migraine with aura, not intractable, without status migrainosus (principal); G43.009 Migraine without aura, not intractable, without status migrainosus | CPT/HCPCS: 99214 ==

== ENCOUNTER → 2024-04-15 03:04 | Outpatient (CLI) | payer MEDICARE, OTHER, SELFPAY ==
--- NOTE | 2024-04-15 06:45 | DI.DEXA_ITS ---
Exam(s) XR DEXA BONE DENSITY W/WO CHEMO EXAM: XR DEXA BONE DENSITY W/WO CHEMO CLINICAL HISTORY: screening for osteoporosis in postmenopausal woman,z78.0 TECHNIQUE: Routine DEXA evaluation of the lumbar spine, hip, or forearm. COMPARISON: No exams were available for comparison FINDINGS: Performed on a Hologic unit. Lateral image: No compression fracture evident. Lumbar Spine total T-score: -1.0 Hip total T-score:-0.7 Independent reading at the level of the femoral neck yields T-score of -1.3 Forearm total T-score: -2.0 IMPRESSION: Bone mineral density measures in the osteopenia range. Fracture risk is moderate. Note: Any spine fracture indicates 5x risk for subsequent spine fracture and 2x risk for subsequent h ip fracture. World Health Organization criteria for BMD interpretation classify patients: Normal...... T- Score at or above -1.0 Osteopenic... T- Score between -1.0 and -2.5 Osteoporosis... T-Score at or below -2.5
--- NOTE | 2024-04-15 06:45 | DI.MAMMO_ITS ---
Exam(s) MAMMO SCREENING EXAM: MAMMO SCREENING CLINICAL HISTORY: screening,z12.39. TECHNIQUE: Bilateral full field digital CC and MLO mammographic images were obtained with 3D tomosyn thesis and utilizing computer aided detection (CAD). COMPARISON: Prior mammograms were reviewed. FINDINGS: There has been no significant change in the appearance and distribution of the fibroglandular tissue. There are no new spiculated masses nor new malignant appearing microcalcification groups. There is no significant architectural distortion nor skin thickening-retraction. IMPRESSION: No radiographic evidence of malignancy. BI-RADS Category 1 - Negative Breast Density - Category B - Scattered areas of fibroglandular density Breast density Category C or D implies that the patient has dense breast tissue. Dense breast tissue can make it harder to find cancer on a mammogram. Dense breast tissue is also associated with an incr eased risk of breast cancer. This information about the result of the mammogram report was provided to the patient to raise their awareness. Use this report when you speak with the patient about their risks for breast cancer, which includes their family history. At that time, you may recommend additional screening tests (Ultrasoun d or MRI) as these tests may add significant information. A negative radiographic report should not delay biopsy if a dominant or clinically suspicious mass is present. Up to ten percent of cancers are not identified on mammography. A negative report may reinforce clinical impression. Adenosis and dense breasts may obscure an underlying neoplasm. False positive reports average 6 to 10%. Patient will receive a letter notifying them of these results.
== END ==
PROVIDERS: PCP Family Medicine; Visit Provider Nurse Practitioner Family
DX: Z78.0 Asymptomatic menopausal state (principal); Z12.31 Encounter for screening mammogram for malignant neoplasm of breast; Z13.820 Encounter for screening for osteoporosis; R92.8 Other abnormal and inconclusive findings on diagnostic imaging of breast
CPT/HCPCS: 77063; 77067; 77080

== ENCOUNTER → 2024-08-01 09:28 | Outpatient (BNVA) | payer MEDICARE, OTHER, SELFPAY | PROVIDERS: PCP Family Medicine; Referring Provider Family Medicine; Visit Provider Physical Therapy Assistant | DX: Z12.11 Encounter for screening for malignant neoplasm of colon (principal) ==

== ENCOUNTER 2024-08-13 01:03 | Outpatient (CLI) | payer MEDICARE, OTHER, SELFPAY ==
--- NOTE | 2024-08-13 12:30 | DI.US_ITS ---
APPROVED REPORT EXAM: Comprehensive 2D, Doppler, and color-flow Echocardiogram Patient Location: Out-Patient Executive Director Global Brand Marketing: Tonya Vicente RDCS (AE) Indications: Murmur, Preoperative exam Other Information Study Quality: Adequate Conclusion Normal left ventricular wall thickness and chamber size. Ejection fraction is 60%. Wall motion is n ormal Normal right ventricular size and function Both atria are normal in size There is no structural or hemodynamically significant valvular disease Estimated right ventricular systolic pressure is 27 mmHg Wall motion Left Ventricle The left ventricle is normal size. The left ventricular systolic function is normal. The left ventric ular ejection fraction is within the normal range. There is normal left ventricular wall thickness. T here is normal LV segmental wall motion. There is no ventricular septal defect visualized. LVEF is 60 %. Right Ventricle The right ventricle is normal size. The right ventricular systolic function is normal. Atria The left atrium size is normal. The right atrium size is normal. The interatrial septum is intact wit h no evidence for an atrial septal defect. Aortic Valve The aortic valve is normal in structure. Aortic valve is trileaflet. There is no aortic valvular sten osis. No aortic regurgitation is present. Mitral Valve The mitral valve is normal in structure. No evidence of mitral valve stenosis. Trace mitral regurgita tion. Tricuspid Valve The tricuspid valve is normal in structure. There is no tricuspid valve stenosis. Trace tricuspid reg urgitation. The RVSP is 27.1_ mmHg. Pulmonic Valve The pulmonary valve is normal in structure. There is no pulmonic valvular stenosis. There is no pulmo finn valvular regurgitation. Great Vessels The aortic root is normal in size. The ascending aorta is normal Aortic arch is normal in caliber. IV C is normal in size and collapses >50% with inspiration. Pericardium There is no pericardial effusion. 2D Dimensions IVSD d PLAX 0.87 cm F: 0.6-1.0 Ao Root d 2.63 cm F: 2.7 - 3.3 LVPW d PLAX 0.93 cm F: 0.6 - 1.0 Ao Asc Diam d 3.34 cm F: 2.3 - 3.1 LVID d PLAX 4.49 cm F: 3.8 - 5.2 LVDs 3.12 cm F: 2.2 - 3.5 LV EF Teichholz 58.0 % FS 30.43 % LV EDV (Teich) 92.0 mL LV ESV (Teich) 38.6 mL M-Mode TAPSE 2.18 cm (M/F) >1.7 Auto EF LV EDV A4C 93.6 mL LV EDV A2C 95.5 mL LV EDV BP 96.1 mL LV ESV A4C 39.9 mL LV ESV A2C 39.8 mL LV ESV BP 39.8 mL LVEF(%) A4C 57.4 % LVEF(%) A2C 58.3 % LVEF(%) BP 58.6 % LV SV A4C 53.7 ml LV SV A2C 55.7 ml LV SV BP 56.3 ml LV CO A4C 2.9 L/min LV CO A2C 3.6 L/min LV CO BP 3.3 L/min HR A4C 54.14 BPM HR A2C 65.46 BPM LV EDV Index (BP) LA Volume LA Length A4C 5.2 cm LA Length A2C 4.6 cm LA Area A4C s 17.04 cm2 LA Area A2C s 15.75 cm2 LA Vol A4C A-L 47.71 mL LA Vol A2C A-L 46.11 mL LA Vol Biplane A-L 49.9 mL LA Vol/BSA A4C A-L LA Vol/BSA A2C A-L LA Vol/BSA BP A-L 26.5 mL/m2 LA Vol A4C MOD 40.8 mL LA Vol A2C MOD 44.0 mL LA Vol BP MOD 44.9 mL RA Volume RA Area A4C 13.5 cm2 RA ESV A4C (A-L) 33.2mL RA Vol/BSA A4C A-L RA Length A4C 4.7 cm RA ESV A4C (MOD) 30.8mL LV Diastology MV E' medial 0.062 (>0.07 m/s) MV E Vmax 0.92 (0.4-1.3 m/s) MV E/E' MED 14.87 (<14) MV A Vmax 0.95 (0.4-1.3 m/s) MV E' lateral 0.077 (>0.1 m/s) E/A Ratio 1.0 MV E/E' LAT 11.93 (<14) MV E' Average 0.069 m/s MV E/E'(average) 13.24 Aortic Valve AoV Vmax 1.27 m/s LVOT Vmax 1.03 m/s AoV Peak Grad 6.5 mmHg LVOT Peak Grad 4.2 mmHg AoV Area (Vmax) 2.22 cm2 LVOT VTI 0.257 m AoV VTI 0.345 m LVOT Mean Grad 2.3 mmHg AoV Mean Boris. 0.92 m/s LVOT SV 70.52 mL AoV Mean Grad 3.8 mmHg LVOT Diam s 1.85 cm AoV Area (VTI) 2.04 cm2 AV Regurg Peak Gr. 6.49 mmHg Velocity Ratio 0.81 Mitral Valve MV DT 168 (160-240 msec) MV Vmax TIPS 0.89 m/s MV Mean Grad 1.5 (<2mmHg) MV VTI 0.288 m Pulmonary Valve PV Vmax 0.97 (0.5-1.5 m/s) RVOT Vmax 0.69 m/s PV Peak Grad 3.8 mmHg RVOT Peak Gr. 1.9 mmHg PV Mean Boris 0.67 m/s RVOT VTI 0.178 m PV Mean Grad 2.1 mmHg RVOT Mean Gr. 1.1 mmHg Tricuspid Valve RA Pressure 3.00 mmHg TR Vmax 2.45 m/s TV S' 0.12 m/s TR Peak Grad 24.1 mmHg RVSP (TR) 27.1 mmHg
== END 2024-08-13 01:23 ==
LOC: DI 01:04
PROVIDERS: PCP Family Medicine; Visit Provider Physical Therapy Assistant
DX: R01.1 Cardiac murmur, unspecified (principal)
CPT/HCPCS: 93306

== ENCOUNTER 2024-08-15 03:11 | Outpatient (CLI) | payer MEDICARE, OTHER, SELFPAY ==
[2024-08-15 10:50] LABS: HCT 44.3 % (36.0-46.0); HGB 14.6 g/dL (11.2-15.7); MCH 28.8 pg (27.0-33.0); MCV 87 fL (80-95); Platelet Count 370 10^3/uL (130-400); RBC 5.07 10^6/uL (3.93-5.22); RDW 13.8 % (11.7-14.6); RDW-SD 44.2 fL; WBC 5.78 10^3/uL (4.4-10.8)
[2024-08-15 11:15] LABS: Hemoglobin A1C 5.7 % (<5.7)
[2024-08-15 11:51] LABS: ALT 25 U/L (14-59); AST 21 U/L (15-37); Albumin 3.7 g/dL (3.4-5.0); Alkaline Phosphatase 81 U/L (46-116); Anion Gap 10.2 mmol/L (3-11); BUN 12 mg/dL (7-18); Bilirubin, Total 0.68 mg/dL (0.2-1.0); CO2 27.8 mmol/L (21.0-32.0); CREATININE 0.9 mg/dL (0.55-1.02); Calcium 9.4 mg/dL (8.5-10.1); Calculated LDL 205 mg/dL (<100); Chloride 102 mmol/L (98-107); Cholesterol 303 mg/dL (<200); Estimated GFR 70.95 (mL/min/1.73m2); Glucose 102 mg/dL (74-106); HDL Cholesterol 71 mg/dL (40-60); Sodium 140 mmol/L (136-145); TSH (W/Ref FT4) 1.95 uIU/mL (0.36-3.74); Total Protein 7.2 g/dL (6.4-8.2); Triglyceride 138 mg/dL (<150)
== END 2024-08-15 03:12 | disposition home or self-care (01) ==
LOC: LBO 03:11
PROVIDERS: PCP Family Medicine; Visit Provider Nurse Practitioner Family
DX: R73.9 Hyperglycemia, unspecified (principal); G43.909 Migraine, unspecified, not intractable, without status migrainosus; J45.909 Unspecified asthma, uncomplicated; R21 Rash and other nonspecific skin eruption; E78.5 Hyperlipidemia, unspecified; R41.3 Other amnesia; G47.00 Insomnia, unspecified
CPT/HCPCS: 36415; 80053; 80061; 85027; 83036; 84443

== ENCOUNTER 2024-08-19 09:14 | Day surgery (SDC) | payer MEDICARE, OTHER, SELFPAY ==
--- NOTE | 2024-08-18 07:58 | W.PM.DSUDISC ---
Date of service: 08/19/24 Time of Service: 11:05 Discharge Plan Disposition Patient Disposition: Home Condition: Good Discharge Details Reason For Visit: screening colonoscopy Attending Provider: Ricardo Somers Primary Care Provider: Tru Carrillo Home Meds and New Rx's Prescriptions: Continued calcium carb-D3-mag [id number] [phone] ea-rxqd-vd-mg tablet 1 tab PO DAILY Qty: 90 3RF Rx Instructions: CALCIUM 1000 MG, MAGNESIUM 400 MG, ZINC 25 MG, VITAMIN D 2000 IU. cholecalciferol (vitamin D3) 25 mcg (1,000 unit) capsule 1,000 unit PO DAILY Qty: 90 3RF sumatriptan succinate 50 mg tablet See Rx Instructions PO .COMPLEX Qty: 24 3RF Rx Instructions: take 1 tab at onset of headache; if no relief may repeat 1 tab after at least 2 hrs; max = 4 tabs/24 hr PO diphenhydramine HCl 25 MG capsule 1 cap PO PRN loratadine [Claritin] 10 MG tablet 10 mg PO DAILY PRN riboflavin (vitamin B2) 100 mg tablet 400 mg PO DAILY PRN fluocinonide 0.05 % cream 1 applic topical BID PRN (Reason: rash) Qty: 30 1RF Qulipta 60 mg tablet 60 mg PO DAILY Qty: 90 3RF fluticasone propion-salmeterol [Advair HFA] 230-21 mcg/actuation HFA aerosol inhaler 2 puff inhalation Q12H Qty: 36 3RF Rx Instructions: administer with spacer albuterol sulfate 90 mcg/actuation HFA aerosol inhaler See Rx Instructions .ROUTE .COMPLEX Qty: 18 0RF Dose Instruction: INHALE 2 PUFFS BY MOUTH 4 TIMES DAILY NEEDED FOR SHORTNESS OF BREATH AND FOR WHEEZING Rx Instructions: INHALE 2 PUFFS BY MOUTH 4 TIMES DAILY NEEDED FOR SHORTNESS OF BREATH AND FOR WHEEZING acetaminophen 500 mg tablet 1,000 mg PO Q8H PRN (Reason: pain) Qty: 90 3RF Discontinued bisacodyl [Dulcolax (bisacodyl)] 5 mg tablet,delayed release (DR/EC) 5 mg PO ONCE Qty: 4 0RF Rx Instructions: Take per colonoscopy instructions provided by ordering providers office polyethylene glycol 3350 17 gram/dose powder 17 g PO ONCE Qty: 238 0RF Rx Instructions: Take per colonoscopy instructions provided by ordering providers office Discharge Instructions Instructions: Colon polyps, Diverticulosis Additional Instructions: Berenice, we are able to complete your colonoscopy today without any difficulty. Your prep was excellent negative everything fine. I did find and remove 1 quite small polyp today. This will be sent off for testing. Once we know the nature of the polyp, that information will be used to guide the timing of your next colonoscopy. Incidentally, he also have a little bit of diverticulosis. Diverticula are weak spots in the muscular part of the colon wall. These cause little pockets or pouches to form. They can get infected or inflamed. When that happens, patients usually have quite severe pain, usually on the left side of their abdomen. Patients also usually feel quite ill. It is usually treated with antibiotics. Hopefully years never bother you. I have attached some information here about diverticulosis as well as colorectal polyps. If you have any questions before the polyp report is available, please do not hesitate to call or ask. 1. If tolerated, consume a soft, low fiber diet for 1-2 days. 2[address] Do not drive, drink alcohol, operate machinery, make critical decisions, or do activities that require coordination or balance for 24 hours. 3. Because air was put into your colon during the procedure, expelling air from your rectum (passing gas or farting) is normal. 4. You may not have a bowel movement for 1-3 days because of the colonoscopy prep. This is normal. 5. Go directly to the emergency room if you notice any of the following: Develop chills (warm to touch), or if you have a thermometer and your temperature is above 101 Difficulty breathing or difficultly swallowing Persistent vomiting Severe abdominal pain, other than gas cramps Severe chest pain Black, tarry stools Any bleeding ? exceeding one tablespoon 6. Call your physician if the site where your intravenous was started becomes red, swollen, painful, and warm to touch. 7. Your physician has reviewed your pre-procedure medications. Please continue to take those medications as previously ordered. You will be given specific information/education regarding any changes to your medications before leaving. Activity:: Activity as Tolerated Diet:: As Tolerated Discharge Orders Discharge Orders: Discharge Order (Routine); Ordered 08/18/24 Ordered By: Ricardo Somers DS: Diagnosis Discharge Diagnosis (1) Encounter for screening colonoscopy: Status: Acute Asessment and Plan: Follow-up on polypectomy result
--- NOTE | 2024-08-18 08:00 | W.COLOREPORT ---
Date of service: 08/19/24 Time of Service: 11:06 Colonoscopy Report Date of procedure: 08/19/24 Pre-op diagnosis general: screening colonoscopy Post-op diagnosis procedure note: other (Cecal polyp, diverticulosis) Procedure: colonoscopy with polypectomy Surgeon: Ricardo Somers Anesthesia Type: General:No Airway Estimated blood loss (mL): 5 Pathology: other (0.25 cm flat cecal polyp) Complications: None Disposition: same day Indications: Irma is a 63 year old woman who needs her enxt screening colonoscopy Prep: Miralax/Dulcolax Procedure Start Time: 10:43 Procedure End Time: 10:59 Retraction Time: 7 Findings: Sigmoid diverticulosis, 0.25 cm flat cecal polyp Procedure Description: After the induction of anesthesia, and with the patient in left lateral decubitus position, I began by performing an external anorectal exam.? Perineum and skin were normal, as was the anal verge.? There was no evidence of external hemorrhoids.? Next, I performed a digital rectal exam.? I did not appreciate any abnormal findings.? Next, I advanced a colonoscope into the rectal vault.? I performed retroflexion.? This appeared normal.? Using insufflation, I then advanced the colonoscope beyond the rectal folds and into the sigmoid colon before advancing towards the cecum.? There is some sigmoid diverticulosis.? The scope was noted to be in the cecum by identification of the ileocecal valve and appendiceal orifice.? Just a few centimeters away from the appendiceal orifice was a 0.25 cm flat polyp. This was removed with cold forcep polypectomy. There is minimal bleeding. I then began withdrawing the colonoscope using repeated irrigation as necessary for full evaluation of the colonic mucosa. ?Once the scope was withdrawn to the level of the rectum, great care was taken to examine portions of the rectal folds.? Finally, the scope was withdrawn and the patient was brought to the same-day surgery recovery unit as the anesthetic wore off. ?The findings and instructions were shared with the patient prior to discharge. [place] Bowel Prep Washington Bowel Prep Right Colon: 3 Left Colon: 3 Transverse Colon: 3 Total Score: 9
[2024-08-19 09:21] VITALS: BP 135/92; PULSE 95; RESP 18; TEMP 36.1; O2SAT 99
[2024-08-19] MEDS: Lactated Ringers 1,000 ML 80 ML IV (09:50)
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
[2024-08-19 10:33] VITALS: BMI 32.9
--- NOTE | 2024-08-19 10:52 | BOWEL_PTH ---
PATIENT: Irma Gaytan LOC: [facility] U#:[id number] AGE/SX: 63/F ROOM: RE08/19/[address]: Ricardo Somers MD : 1960 BED: DIS: 08/19/2024 SPEC #: [id number] RECD: 08/19/24 13:13 STATUS: CECILIO REQ #: [id number] JAYLEN: 08/19/24 10:[address]: Ricardo Somres DEPT: Surgical Specimen RECD BY: Mary Godinez ENTERED: 08/19/24 13:14 SP TYPE: Bowel OTHR DR: Tru Carrillo MD Tissues: 1 - BIOPSY BOWEL Procedures: GROSS AND MICRO LEVEL 4 Comments: [id number]
[2024-08-19 11:02] VITALS: BP 114/69; PULSE 68; RESP 16; TEMP 36.5; O2SAT 95
--- NOTE | 2024-08-19 11:09 | W.ANESPOSTOP ---
Postoperative Evaluation Date, Time and Location Date Performed: 08/19/24 Time Performed: 11:05 Patient Location: Day Surgery Unit Vital Signs Most Recent Imported Vital Signs: Most Recent Vital Signs Temp Pulse Resp BP Pulse Ox 36.5 C 68 16 114/69 95 08/19/24 11:02 08/19/24 11:02 08/19/24 11:02 08/19/24 11:02 08/19/24 11:02 Pain Score Most Recent Pain Score: Most Recent Pain Score Pain Level 0 08/19/24 11:02 Assessment Mental Status: Awake (Alert & Oriented to Patient Baseline) Airway and Respiratory Function: Patent airway with normal (patient baseline) respiratory exam Cardiovascular Function: Hemodynamically Stable Hydration Status: Adequately Hydrated Nausea & Vomiting: No Nausea or Vomiting Pain: Pt. Denies Any Pain Peripheral Nerve Block: Patient did not receive a nerve block
[2024-08-19 11:19] VITALS: BP 133/78; PULSE 62; RESP 16; TEMP 36.8; O2SAT 96
== END 2024-08-19 11:36 | disposition home or self-care (01) ==
LOC: SUR 09:14
PROVIDERS: PCP Family Medicine; Visit Provider Surgery
PROC: 0DJD8ZZ Inspection of Lower Intestinal Tract, Via Natural or Artificial Opening Endoscopic (ICD-10-PCS; CPT 45378; principal; 2024-08-19 10:30)
DX: Z12.11 Encounter for screening for malignant neoplasm of colon (principal); D12.0 Benign neoplasm of cecum; K57.30 Diverticulosis of large intestine without perforation or abscess without bleeding
CPT/HCPCS: 45380; 88305; J2704

== ENCOUNTER → 2024-09-24 09:50 | Outpatient (BNVA) | payer MEDICARE, OTHER, SELFPAY | PROVIDERS: PCP Family Medicine; Visit Provider Nurse Practitioner Adult Health | DX: G43.909 Migraine, unspecified, not intractable, without status migrainosus (principal); G56.03 Carpal tunnel syndrome, bilateral upper limbs; G62.9 Polyneuropathy, unspecified | CPT/HCPCS: 99215 ==

== ENCOUNTER → 2025-03-24 09:45 | Outpatient (BNVA) | payer MEDICARE, OTHER, SELFPAY | PROVIDERS: PCP Family Medicine; Referring Provider Family Medicine; Visit Provider Nurse Practitioner Adult Health | DX: G43.009 Migraine without aura, not intractable, without status migrainosus (principal); G43.109 Migraine with aura, not intractable, without status migrainosus | CPT/HCPCS: 99214 ==

== ENCOUNTER 2025-05-19 01:58 | Outpatient (CLI) | payer MEDICARE, OTHER, SELFPAY ==
--- NOTE | 2025-05-19 06:45 | DI.NM_ITS ---
APPROVED REPORT Exam: Pharmacologic Patient Location: Out-Patient Room/Bed: Stress Nurse: Dolly Koch RN Ordering Provider:LILIANE REYNOSO, Contact Number: [phone] BMI: 32.00 Baseline Rhythm: Sinus Bradycardia Indications: Chest pain, Medical History Medical History: Memory impairment, dementia, head injury r/t trauma, peripheral neuropathy, asthma Cardiac Medications: Albuterol sulfate, qulipta, sumatriptan Allergies: Cymbalta, antihistamines-alkylamine, bronphemiramine, hydrocodone, penicillins, peppermint, gabapentin, sudafed, topamax, cigarette smoke, raw wood, environmental Cardiac Risk Factors: Family hx, asthma Previous Cardiac Procedures: None Pretest Chest Pain Characteristics: None Exercise History: Indeterminate Physical Disabilities: Reports balance issues Lung Sounds: Clear to auscultation Heart Sounds: Regular Stress Test Details Test: Pharmacologic stress was paired with low level exercise. Reason for pharmacologic stress test: physical limitation. Nuclear Acquisition: Rest Tc-99m/Stress Tc-99m 1 day Rest Isotope: Tc-99m Sestamibi. Dose: 10.0 Date: 05/19/2025 Injection Time: 0915 Stress Isotope: Tc-99m Sestamibi. Dose: 30.0 Date: 05/19/2025 Injection Time: 1110 HR Resting HR Supine: 59 bpm Max Heart Rate (APMHR): 154 bpm Resting HR Standin bpm Target HR (85% APMHR): 131 bpm Max HR Achieved: 124 bpm % of APMHR: 81 Recovery HR: 73 bpm BP Resting BP Supine: 150/88 mmHg Resting BP Standin/84 mmHg Max BP: 174/88 mmHg Recovery BP: 154/84 mmHg ECG Resting ECG: Sinus Bradycardia, 1st degree AV block Ectopy: None Stress ECG: Sinus Tachycardia, 1st degree AV block ST Change: Nondiagnostic low heart rate Arrhythmia: None Recovery ECG: Sinus Rhythm, 1st degree AV block Recovery ST Change: Nondiagnostic low heart rate Recovery Arrhythmia: None Clinical Stress Symptoms: Headache Angina Score: None Rate Pressure Product: [id number] Stress ECG Conclusion 1. Resting electrocardiogram showed first-degree AV block 2. Patient underwent testing using a combination of low-level exercise and pharmacologic stress with regadenoson 3. Peak heart rate achieved was 81% of maximal predicted for age 4. The electrocardiographic portion of the test was nondiagnostic 5. See MPI report Stress Test Summary STAGE HR BP SpO2 Symptoms NOTES Supine 59 150/88 96% Standing 55 154/84 1 min post Lexiscan injection 90 154/78 95% 3 min post Lexiscan injection 95 174/88 97% 6 min post Lexiscan injection 73 154/84 93% Patient unable to Noel protocol r/t reports of hx of balance issues Patient completed walking jesus protocol without difficulty. Patient reported H/A at test end otherwise denied all symptoms. Patient proceeded to imaging ambulatory in no apparent distress. MPI Conclusion Myocardial perfusion is normal. There is no ischemia or evidence of prior infarction Ejection fraction is 82% with normal wall motion
[2025-05-19] MEDS: Regadenoson 0.4 MG/5 ML SYR IVP (11:26)
== END 2025-05-19 02:18 ==
LOC: DI 01:58
PROVIDERS: PCP Family Medicine; Visit Provider Internal Medicine Cardiovascular Disease
DX: R07.9 Chest pain, unspecified (principal)
CPT/HCPCS: 78452; 93016; 93018; 93017; J2785

== ENCOUNTER → 2025-09-22 09:59 | Outpatient (BNVA) | payer MEDICARE, OTHER, SELFPAY | PROVIDERS: PCP Family Medicine; Visit Provider Nurse Practitioner Adult Health | DX: G43.009 Migraine without aura, not intractable, without status migrainosus (principal); G43.109 Migraine with aura, not intractable, without status migrainosus | CPT/HCPCS: 99214 ==